=== PATIENT | female | born 1960 ===

== ENCOUNTER 2018-02-24 06:49 | Day surgery (SDC) | payer BC ==
[2018-02-16 13:50] VITALS: BMI 26.7
[2018-02-24] MEDS ORDERED: Midazolam 2 MG/2 ML VIAL ONE (08:09)
[2018-02-24] MEDS ORDERED: Propofol 10 mg/ml Inj (20 ML) ONE (08:09)
[2018-02-24] MEDS ORDERED: HYDROmorphone 0.5 mg/0.5 ml ISec IVP PRN (08:46)
[2018-02-24] MEDS ORDERED: Albuterol 0.083% Inhal Sol (2.5 mg/3 mL) UD ONE (09:04)
--- NOTE | 2018-02-24 09:11 | PCM.SURG1 ---
Surgeon's Initial Post Op Note - Surgeon's Notes Surgeon: Alisa Gleason MD Lead Engineer: none Type of Anesthesia: General LMA Pre-Operative Diagnosis: post menopausalbleeding Operative Findings: 8 -10 week size uteurs, bilaterl ostial visualized, no gross masses Post-Operative Diagnosis: same as above Operation Performed: Hysteroscopy dilation and currettage Specimen/Specimens Removed: endocervical currettings, endometrial currettings Estimated Blood Loss: EBL {In ML}: 5 Blood Products Given: N/A Drains Used: No Drains Date of Surgery/Procedure: 02/24/18 Time of Surgery/Procedure: 08:00
[2018-02-24 11:45] VITALS: BP 129/80; PULSE 75; RESP 15; TEMP 98.1; O2SAT 97
--- NOTE | 2018-02-25 05:28 | OP ---
PROCEDURE DATE: 02/24/2018 SURGEON: Alisa Gleason MD AGRICULTURAL SPECIALIST: None. TYPE OF ANESTHESIA: General LMA. PREOPERATIVE DIAGNOSIS: Postmenopausal bleeding. POSTOPERATIVE DIAGNOSIS: Postmenopausal bleeding. OPERATIVE FINDINGS: An 8-week sized anteverted uterus. Bilateral ostia visualized. No masses. ESTIMATED BLOOD LOSS: 5 mL. BLOOD PRODUCTS: None. COMPLICATIONS: None. SPECIMEN: Endometrial curettings, endocervical curettings. DESCRIPTION OF PROCEDURE: The patient was taken to the operating room, where she was given general anesthesia. Once it was found to be adequate, she was placed on the operating table in dorsal supine position with legs supported using stirrups. The patient was then prepped and draped in the usual sterile fashion. A time-out confirmed correct patient and correct procedure. Bimanual exam was performed with the above-mentioned findings. A red rubber catheter was then inserted in the urethra to drain the bladder. A Rondon retractor was placed in the anterior and posterior fornix of the vagina. The cervix was adequately visualized. A single-tooth tenaculum was placed in the anterior lip of the cervix. Endocervical curettings were obtained with a Kevkristenian curette and sent to pathology on [facility]. The uterus was then sounded to 7 cm, following which the cervix was sequentially dilated to allow for introduction of the hysteroscope under direct visualization using normal saline as the distention media. Bilateral ostia were visualized. There were no masses noted. Pictures were then taken. Hysteroscope was removed. Gentle curettage was done. Specimen was sent to Pathology, labeled as endometrial curettings. All instruments were removed. There was good hemostasis at the tenaculum puncture site. At the end of the procedure, all needle, sponge and instrument counts were noted and correct x2. The patient tolerated the procedure well and was transferred to the recovery room in stable condition. Alisa Gleason MD
== END 2018-02-24 10:46 | disposition home or self-care (01) ==
LOC: C.SDS 06:49
PROVIDERS: ATTEND Obstetrics & Gynecology
DX: N95.0 Postmenopausal bleeding (principal); N85.4 Malposition of uterus; J45.909 Unspecified asthma, uncomplicated; Z98.890 Other specified postprocedural states; Z90.49 Acquired absence of other specified parts of digestive tract; Z79.899 Other long term (current) drug therapy